=== PATIENT | female | born 1995 | race Caucasian/White ===

== ENCOUNTER 2020-03-23 14:45 | Emergency (ER) | payer MEDICAID ==
[~2020-03-23] VITALS: Ht 170.2 cm; Wt 142.3 kg
[~2020-03-23 14:45] MED LIST: IBUP-1984 PO; NO HOME MEDS
[2020-03-23 15:42] LABS: BASOPHILS % (AUTO) 0.1 % (0-1); EOSINOPHILS % (AUTO) 0.2 % (0-6); HEMATOCRIT 35.8 % (35.0-45.0); LYMPHOCYTES # (AUTO) 1.4 X10'3 (1.1-4.8); LYMPHOCYTES % (AUTO) 9.3 % (21-51); MEAN CORPUSCULAR HEMOGLOBIN 29.2 PG (27.0-31.0); MEAN CORPUSCULAR HGB CONC 33.5 g/dL (33.0-36.5); MEAN CORPUSCULAR VOLUME 87.1 FL (78-98); MEAN PLATELET VOLUME 8.8 FL (7.4-10.4); MONOCYTES # (AUTO) 0.6 X10'3 (0-0.9); MONOCYTES % (AUTO) 3.9 % (2-12); NEUTROPHILS # (AUTO) 13.2 X10'3 (1.8-7.7); NEUTROPHILS % (AUTO) 86.5 % (42-75); PLATELET COUNT 221 X10'3 (140-440); RED BLOOD COUNT 4.11 X10'6 (4.20-5.60); RED CELL DISTRIBUTION WIDTH 13.5 % (11.5-14.5); WHITE BLOOD COUNT 15.3 X10'3 (4.5-11.0)
[2020-03-23 15:57] LABS: ALANINE AMINOTRANSFERASE 23 U/L (12-78); ALBUMIN 3.2 G/DL (3.4-5.0); ALBUMIN/GLOBULIN RATIO 0.8 (1.1-1.5); ALKALINE PHOSPHATASE 104 IU/L (46-116); ANION GAP 10 (8-16); ASPARTATE AMINO TRANSFERASE 13 U/L (10-37); BILIRUBIN,TOTAL 0.3 MG/DL (0.1-1.0); BLOOD UREA NITROGEN 8 MG/DL (7-18); BUN/CREATININE RATIO 11.1 (6.6-38.0); CALCIUM 9.3 MG/DL (8.5-10.1); CHLORIDE 103 MMOL/L (99-107); CREATININE 0.72 MG/DL (0.40-0.90); GLUCOSE 109 MG/DL (70-104); POTASSIUM 3.8 MMOL/L (3.5-5.1); SODIUM 138 MMOL/L (135-145); TOTAL CARBON DIOXIDE 25.4 MMOL/L (24-32); TOTAL PROTEIN 7.2 G/DL (6.4-8.2); eGFR > 90 ML/MIN
[2020-03-23 16:06] LABS: LIPASE 79 U/L (73-393)
[2020-03-23] MEDS ORDERED: famotidine/PF 10 mg/ml inj IV ONE (16:20)
[2020-03-23] MEDS ORDERED: ondansetron/PF 4mg/2ml inj IV ONE ×2 (16:20→19:30)
[2020-03-23] MEDS ORDERED: normal saline 1000ML IV soln IVB ONE ×2 (16:40→18:10)
[2020-03-23 17:03] LABS: CLARITY,URINE SLIGHTLY CLOUDY (Clear); COLOR,URINE YELLOW (Yellow); GLUCOSE, URINE NEGATIVE (Neg); KETONES,URINE 40 mg/dl (Neg); LEUKOCYTE ESTERASE ,URINE NEGATIVE (Neg); NITRITES, URINE NEGATIVE (Neg); OCCULT BLOOD,URINE NEGATIVE (Neg); PROTEIN,URINE NEGATIVE (Neg); UROBILINOGEN,URINE 0.2 E.U/dL (0.2-1.0)
[2020-03-23 17:07] LABS: UA COLLECTION TYPE CLN CATCH MIDSTREAM
[2020-03-23 17:10] LABS: MUCUS STRANDS MANY /LPF (Neg)
[2020-03-23 17:11] LABS: HYALINE CASTS 0-3 /LPF (NEGATIVE)
[2020-03-23 17:21] LABS: RBC,URINE 0-2 /HPF (0-2)
[2020-03-23 17:22] LABS: WBC,URINE 0-4 /HPF (0-4)
[2020-03-23 17:24] LABS: BACTERIA,URINE 1+ /HPF (Neg); SQUAMOUS EPITHELIAL CELL,UR MANY /LPF (FEW)
[2020-03-23] MEDS ORDERED: normal saline 1000ml 1,000 ML IV ONE (18:10)
[2020-03-23] MEDS ORDERED: morphine 4 MG/ML inj SYRINge IV ONE (19:30)
[2020-03-23 19:42] LABS: BETA HCG,QUANTITATIVE 6121 mIU/ml
--- NOTE | 2020-03-23 20:07 | NUR ---
[facility], ordered morphine and was checked with pharmasist that morphine is verified adn safe to give.
[2020-03-23 20:18] VITALS: BP 142/78
== END 2020-03-23 20:24 | disposition short-term general hospital (02) ==
LOC: ER 14:46
DX: O99.612 Diseases of the digestive system complicating pregnancy, second trimester (principal); K92.9 Disease of digestive system, unspecified; Z3A.24 24 weeks gestation of pregnancy; Z88.1 Allergy status to other antibiotic agents; Z79.899 Other long term (current) drug therapy; Z56.0 Unemployment, unspecified; Z20.828 Contact with and (suspected) exposure to other viral communicable diseases
CPT/HCPCS: 36415; 76700; 80053; 81001; 83690; 83880; 84484; 84702; 85025; 86885; 86900; 86901; 87635; 93005; 96361; 96374; 96375; 99285; C9803; J2405; J3490; J7030